=== PATIENT | male | born 1980 | race Caucasian/White ===

== ENCOUNTER 2021-02-10 07:41 | Day surgery (SDC) | payer OTHER ==
[2021-02-10] MEDS ORDERED: HEPARIN SODIUM (PORCINE) 5000 UNITS/ML 1ML VIAL ONE (08:01)
[2021-02-10] MEDS ORDERED: ceFAZolin 1GM/50ML 100 ML IV ONE (08:47)
[2021-02-10] MEDS ORDERED: LIDOCAINE 1% HCL (LOCAL ANESTH.) INJ 20ML MDV ONE ×2 (09:47→09:49)
[2021-02-10] MEDS ORDERED: BUPIVACAINE HCL 50 ML ONE (09:47)
[2021-02-10] MEDS ORDERED: MIDAZOLAM HCL 2MG/2ML 2ml VIAL (1mg/ml) ONE (10:08)
[2021-02-10] MEDS ORDERED: ONDANSETRON HCL 4 MG/2 ML VIAL ONE (10:08)
[2021-02-10] MEDS ORDERED: fentaNYL CITRATE 100 MCG/2 ML VL ONE (10:08)
[2021-02-10] MEDS ORDERED: LIDOCAINE 2% (LOCAL ANESTH.) PF 5ml SDV ONE (10:08)
[2021-02-10] MEDS ORDERED: PROPOFOL 10 MG/ML 20 ML IV ONE (10:08)
[2021-02-10] MEDS ORDERED: NEOSTIGMINE 1 MG/ML INJ (10mg/10ML VIAL) ONE (11:00)
[2021-02-10] MEDS ORDERED: GLYCOPYRROLATE 0.2 MG/ML 1ML VIAL ONE ×2 (11:00→11:26)
[2021-02-10] MEDS ORDERED: NALOXONE HCL 0.4 MG/ML VIAL ONE (11:19)
[2021-02-10] MEDS ORDERED: ONDANSETRON HCL 4 MG/2 ML VIAL IV PRN (11:45)
[2021-02-10] MEDS ORDERED: HYDROmorphone HCL 2 MG/ML VL IV PRN (11:45)
[2021-02-10 12:05] VITALS: BP 151/103
== END 2021-02-10 12:30 | disposition home or self-care (01) ==
LOC: SUR 07:41
DX: K42.0 Umbilical hernia with obstruction, without gangrene (principal); Z98.890 Other specified postprocedural states; Z79.899 Other long term (current) drug therapy
CPT/HCPCS: 49587; J0690; J1170; J1644; J2001; J2250; J2310; J2405; J2704; J3010; J3490

== ENCOUNTER 2021-07-12 12:46 | Inpatient (IN) | payer OTHER ==
[~2021-07-12] VITALS: Ht 175.3 cm; Wt 67.2 kg
[2021-07-12] MEDS ORDERED: SODIUM CHLORIDE 0.9% 500 ML IVB ONE (13:15)
[2021-07-12] MEDS ORDERED: SODIUM CHLORIDE 0.9% 1,000 ML IV ONE (13:15)
[2021-07-12] MEDS ORDERED: cefTRIAXone 1GM/50ML D5W 50 ML IV ONE (13:15)
[2021-07-12] MEDS ORDERED: metroNIDAZOLE 500MG/100ML 100 ML IV ONE (13:15)
[2021-07-12 13:58] LABS: Basophils # (auto) 0.1 10 ^3/uL (0-0.2); Basophils % (auto) 0.6 % (0.0-2.0); Eosinophils # (auto) 0.2 10 ^3/uL (0-0.8); Eosinophils % (auto) 1.9 % (0.0-7.0); Hematocrit 39.5 % (41.0-53.0); Hemoglobin 13.3 g/dL (13.5-17.5); Lymphocytes # (auto) 1.1 10 ^3/uL (0.4-5.4); Lymphocytes % (auto) 11.5 % (10.0-50.0); Mean Corpuscular Hgb Conc. 33.7 g/dL (32.0-36.0); Mean Corpuscular Volume 85.9 fL (80.0-100.0); Monocytes # (auto) 1.1 10 ^3/uL (0-1.3); Monocytes % (auto) 11.6 % (0.0-12.0); Neutrophils # (auto) 7.2 10 ^3/uL (1.6-8.6); Neutrophils % (auto) 74.4 % (37.0-80.0); Nucleated Red Blood Cells % 0.1 %; Red Cell Distribution Width 14.4 % (11.8-14.3); White Blood Cell 9.6 10^3/uL (4.4-10.8)
[2021-07-12 14:25] LABS: Magnesium 2.8 mg/dL (1.6-2.6)
[2021-07-12 14:30] LABS: Albumin 3.1 g/dL (3.4-5.0); BUN/Creatinine Ratio 15.5; Calcium 9.2 mg/dL (8.5-10.1)
[2021-07-12 14:41] LABS: Bilirubin, Total 0.3 mg/dL (0.2-1.0); Total Protein 7.7 g/dL (6.4-8.2)
[2021-07-12 14:42] LABS: INR 0.99 (0.9-1.15)
[2021-07-12] MEDS ORDERED: IOHEXOL 300 MG/ML 100ML BOTTLE IJ ONE (14:58)
[2021-07-12 17:30] LABS: Urine Bacteria NONE SEEN /hpf (None Seen); Urine Blood Negative /uL (Negative); Urine Specific Gravity 1.049 (1.001-1.035); Urine WBC <1 /hpf (0 - 3)
[2021-07-12] MEDS ORDERED: PIPERACILLIN-TAZOB 3.375GM 100 ML IV SCH (18:30)
[2021-07-12] MEDS ORDERED: ONDANSETRON HCL 4 MG/2 ML VIAL IV PRN (18:30)
[2021-07-12] MEDS ORDERED: MORPHINE SULFATE 4 MG/ML SYR/VIAL IV PRN (18:30)
[2021-07-12] MEDS ORDERED: VANCOMYCIN PER PHARMACY 0 MG IV SCH (20:15)
[2021-07-12] MEDS ORDERED: VANCOMYCIN 1GM/250ML 250 ML IV ONE (21:00)
[2021-07-12 22:00] VITALS: BP 120/68
[2021-07-13 05:00] VITALS: BP 104/56
[2021-07-13 06:58] LABS: BUN/Creatinine Ratio 11.4; Calcium 8.8 mg/dL (8.5-10.1); Potassium 3.9 mmol/L (3.5-5.1)
[2021-07-13 08:00] VITALS: BP 110/81
[2021-07-13 09:00] VITALS: BP_SYST 110; BP_SYST 139; BP_DIAS 105; BP_DIAS 81
[2021-07-13] MEDS: VANCOMYCIN 1GM/250ML 250 ML IV SCH ×2 (09:00→21:27)
[2021-07-13] MEDS ORDERED: ENOXAPARIN SOD 40 MG/0.4 ML SYRINGE SC ONE (10:00)
[2021-07-13 12:31] VITALS: BP 120/69
[2021-07-13 16:39] VITALS: BP 106/61
[2021-07-13 22:00] VITALS: BP 118/70
[2021-07-13] MEDS: HYDROcodone-ACET 5/325MG TAB PO PRN (23:56)
[2021-07-14 05:00] VITALS: BP 117/82
[2021-07-14 07:38] LABS: INR 1.05 (0.9-1.15); Partial Thromboplastin Time 28.8 sec (23.6-33.0)
[2021-07-14 08:52] VITALS: BP 118/75
[2021-07-14] MEDS: VANCOMYCIN 1GM/250ML 250 ML IV SCH ×2 (09:00→20:56)
[2021-07-14] MEDS: MORPHINE SULFATE 4 MG/ML SYR/VIAL IV PRN ×3 (09:48→21:50)
[2021-07-14 12:50] VITALS: BP 113/70
[2021-07-14] MEDS ORDERED: MIDAZOLAM HCL 2MG/2ML 2ml VIAL (1mg/ml) ONE ×2 (15:23→15:52)
[2021-07-14] MEDS ORDERED: fentaNYL CITRATE 100 MCG/2 ML VL ONE (15:23)
[2021-07-14] MEDS ORDERED: ROCURONIUM 10MG/ML 10ML VIAL IV ONE (15:32)
[2021-07-14] MEDS ORDERED: SUCCINYLCHOLINE CHLORIDE 20 MG/ML 10ML VIAL IV ONE (15:40)
[2021-07-14] MEDS ORDERED: LIDOCAINE 1% HCL (LOCAL ANESTH.) INJ 20ML MDV ONE (15:48)
[2021-07-14] MEDS ORDERED: BUPIVACAINE HCL 50 ML ONE (15:48)
[2021-07-14] MEDS ORDERED: PROPOFOL 10 MG/ML 20 ML IV ONE (16:22)
[2021-07-14] MEDS ORDERED: METOCLOPRAMIDE HCL 5MG/ml INJ 2ml VIAL ONE (16:22)
[2021-07-14] MEDS ORDERED: ONDANSETRON HCL 4 MG/2 ML VIAL ONE (16:22)
[2021-07-14] MEDS ORDERED: HYDROmorphone HCL 2 MG/ML VL IV PRN ×2 (16:45)
[2021-07-14] MEDS ORDERED: METOCLOPRAMIDE HCL 5MG/ml INJ 2ml VIAL IV PRN (16:45)
[2021-07-14] MEDS ORDERED: ONDANSETRON HCL 4 MG/2 ML VIAL IV PRN (16:45)
[2021-07-14 22:23] VITALS: BP 102/69
[2021-07-15 05:00] VITALS: BP 105/69
[2021-07-15] MEDS: VANCOMYCIN 1GM/250ML 250 ML IV SCH ×2 (11:00→21:11)
[2021-07-15] MEDS: HYDROcodone-ACET 5/325MG TAB PO PRN (11:50)
[2021-07-15 12:42] VITALS: BP 120/74
[2021-07-15 17:04] VITALS: BP 111/74
[2021-07-15] MEDS: CELECOXIB 100 MG CAP PO SCH (21:11)
[2021-07-15 21:44] VITALS: BP 109/73
[2021-07-16 04:59] VITALS: BP 107/68
[2021-07-16] MEDS: VANCOMYCIN 1GM/250ML 250 ML IV SCH ×2 (08:48→21:34)
[2021-07-16 09:00] VITALS: BP 117/62
[2021-07-16] MEDS: PANTOPRAZOLE 40 MG TAB PO SCH (09:00)
[2021-07-16] MEDS: CELECOXIB 100 MG CAP PO SCH ×2 (09:00→21:34)
[2021-07-16] MEDS: ENOXAPARIN SOD 40 MG/0.4 ML SYRINGE SC SCH (09:00)
[2021-07-16] MEDS: HYDROcodone-ACET 5/325MG TAB PO PRN (09:02)
[2021-07-16 13:00] VITALS: BP_SYST 122; BP_SYST 92; BP_DIAS 66; BP_DIAS 72
[2021-07-16 17:00] VITALS: BP_SYST 112; BP_SYST 31; BP_DIAS 81; BP_DIAS 92
[2021-07-16 22:00] VITALS: BP 112/72
[2021-07-17 05:17] VITALS: BP 123/74
[2021-07-17 08:00] VITALS: BP 115/73
[2021-07-17] MEDS: VANCOMYCIN 1GM/250ML 250 ML IV SCH ×2 (11:21→20:45)
[2021-07-17] MEDS: CELECOXIB 100 MG CAP PO SCH ×2 (11:22→20:45)
[2021-07-17] MEDS: ENOXAPARIN SOD 40 MG/0.4 ML SYRINGE SC SCH (11:22)
[2021-07-17] MEDS: PANTOPRAZOLE 40 MG TAB PO SCH (11:22)
[2021-07-17 12:00] VITALS: BP 118/68
[2021-07-17 16:00] VITALS: BP 113/68
[2021-07-17 22:00] VITALS: BP 119/71
[2021-07-18 05:00] VITALS: BP 113/67
[2021-07-18 09:00] VITALS: BP 115/65
[2021-07-18] MEDS: VANCOMYCIN 1GM/250ML 250 ML IV SCH ×2 (11:06→21:00)
[2021-07-18] MEDS: PANTOPRAZOLE 40 MG TAB PO SCH (11:06)
[2021-07-18] MEDS: CELECOXIB 100 MG CAP PO SCH ×2 (11:06→21:54)
[2021-07-18] MEDS: ENOXAPARIN SOD 40 MG/0.4 ML SYRINGE SC SCH (11:06)
[2021-07-18 13:00] VITALS: BP 115/64
[2021-07-18 17:00] VITALS: BP 115/71
[2021-07-18 22:00] VITALS: BP 101/56
[2021-07-19 05:00] VITALS: BP 101/69
[2021-07-19 05:57] LABS: Potassium 3.8 mmol/L (3.5-5.1)
[2021-07-19 06:02] LABS: Calcium 8.3 mg/dL (8.5-10.1)
[2021-07-19 09:00] VITALS: BP 106/62
[2021-07-19] MEDS: VANCOMYCIN 1GM/250ML 250 ML IV SCH ×2 (09:00→21:29)
[2021-07-19] MEDS: CELECOXIB 100 MG CAP PO SCH ×2 (10:00→21:29)
[2021-07-19] MEDS: ENOXAPARIN SOD 40 MG/0.4 ML SYRINGE SC SCH (10:00)
[2021-07-19] MEDS: PANTOPRAZOLE 40 MG TAB PO SCH (10:00)
[2021-07-19] MEDS: HYDROcodone-ACET 5/325MG TAB PO PRN (10:38)
[2021-07-19 13:00] VITALS: BP 113/70
[2021-07-19 17:00] VITALS: BP 111/74
[2021-07-19 22:00] VITALS: BP 102/55
[2021-07-20 05:00] VITALS: BP 123/76
[2021-07-20 07:27] LABS: Calcium 8.3 mg/dL (8.5-10.1); Potassium 4.1 mmol/L (3.5-5.1)
[2021-07-20 07:29] LABS: BUN/Creatinine Ratio 21.6
[2021-07-20 08:41] VITALS: BP 122/68
[2021-07-20] MEDS: VANCOMYCIN 1GM/250ML 250 ML IV SCH ×2 (10:34→21:27)
[2021-07-20] MEDS: CELECOXIB 100 MG CAP PO SCH ×2 (10:34→23:23)
[2021-07-20] MEDS: PANTOPRAZOLE 40 MG TAB PO SCH (10:34)
[2021-07-20] MEDS: ENOXAPARIN SOD 40 MG/0.4 ML SYRINGE SC SCH (10:35)
[2021-07-20 12:36] VITALS: BP 106/69
[2021-07-20 16:28] VITALS: BP_SYST 125; BP_DIAS 7; BP_DIAS 73
[2021-07-20] MEDS: HYDROcodone-ACET 5/325MG TAB PO PRN (16:28)
[2021-07-20 16:40] VITALS: BP 114/66
[2021-07-20 21:34] VITALS: BP 114/75
[2021-07-21 05:00] VITALS: BP 117/72
[2021-07-21] MEDS: HYDROcodone-ACET 5/325MG TAB PO PRN (06:52)
[2021-07-21 09:00] VITALS: BP 118/69
[2021-07-21] MEDS: VANCOMYCIN 1GM/250ML 250 ML IV SCH ×2 (09:00→22:03)
[2021-07-21] MEDS: ENOXAPARIN SOD 40 MG/0.4 ML SYRINGE SC SCH (10:00)
[2021-07-21] MEDS: PANTOPRAZOLE 40 MG TAB PO SCH (10:00)
[2021-07-21] MEDS: CELECOXIB 100 MG CAP PO SCH ×2 (10:00→23:21)
[2021-07-21 13:00] VITALS: BP 122/73
[2021-07-21 17:00] VITALS: BP 112/60
[2021-07-21 22:26] VITALS: BP 113/70
[2021-07-21] MEDS: HYDROCORTISONE ACET 25 MG RECTAL SUPP PR PRN (23:21)
[2021-07-22 03:00] VITALS: BP 115/74
[2021-07-22] MEDS: HYDROCORTISONE ACET 25 MG RECTAL SUPP PR PRN ×2 (07:03→21:11)
[2021-07-22 09:00] VITALS: BP 139/58
[2021-07-22] MEDS: VANCOMYCIN 1GM/250ML 250 ML IV SCH ×2 (09:00→21:10)
[2021-07-22] MEDS: ENOXAPARIN SOD 40 MG/0.4 ML SYRINGE SC SCH (10:00)
[2021-07-22] MEDS: CELECOXIB 100 MG CAP PO SCH ×2 (10:00→21:11)
[2021-07-22] MEDS: PANTOPRAZOLE 40 MG TAB PO SCH (10:00)
[2021-07-22 13:00] VITALS: BP 114/70
[2021-07-22 17:00] VITALS: BP 116/61
[2021-07-22 22:00] VITALS: BP 102/55
[2021-07-23 05:00] VITALS: BP 114/60
[2021-07-23] MEDS: HYDROcodone-ACET 5/325MG TAB PO PRN (05:27)
[2021-07-23 08:45] VITALS: BP 114/69
[2021-07-23] MEDS: PANTOPRAZOLE 40 MG TAB PO SCH (10:00)
[2021-07-23] MEDS: ENOXAPARIN SOD 40 MG/0.4 ML SYRINGE SC SCH (10:00)
[2021-07-23] MEDS: CELECOXIB 100 MG CAP PO SCH ×2 (10:00→22:00)
[2021-07-23] MEDS: VANCOMYCIN 1GM/250ML 250 ML IV SCH (12:00)
[2021-07-23 13:00] VITALS: BP 104/61
[2021-07-23 17:00] VITALS: BP 97/70
[2021-07-23 20:00] VITALS: BP 98/62
[2021-07-23 22:00] VITALS: BP 98/62
[2021-07-24] MEDS: VANCOMYCIN 1GM/250ML 250 ML IV SCH (04:08)
[2021-07-24 05:00] VITALS: BP 123/77
[2021-07-24 05:45] LABS: Basophils # (auto) 0 10 ^3/uL (0-0.2); Basophils % (auto) 0.7 % (0.0-2.0); Eosinophils # (auto) 0.2 10 ^3/uL (0-0.8); Eosinophils % (auto) 2.9 % (0.0-7.0); Hematocrit 34.9 % (41.0-53.0); Hemoglobin 12.2 g/dL (13.5-17.5); Lymphocytes # (auto) 1.5 10 ^3/uL (0.4-5.4); Lymphocytes % (auto) 26.8 % (10.0-50.0); Mean Corpuscular Hemoglobin 29.6 pg (28.0-32.0); Mean Corpuscular Volume 84.7 fL (80.0-100.0); Monocytes # (auto) 0.6 10 ^3/uL (0-1.3); Monocytes % (auto) 11.8 % (0.0-12.0); Neutrophils # (auto) 3.1 10 ^3/uL (1.6-8.6); Neutrophils % (auto) 57.8 % (37.0-80.0); Nucleated Red Blood Cells % 0.2 %; Red Blood Cells 4.12 10^6/uL (4.5-5.90); White Blood Cell 5.5 10^3/uL (4.4-10.8)
[2021-07-24 08:00] VITALS: BP 98/62
[2021-07-24 09:41] VITALS: BP 110/67
[2021-07-24 13:00] VITALS: BP 99/60
[2021-07-24] MEDS: PANTOPRAZOLE 40 MG TAB PO SCH (16:08)
[2021-07-24] MEDS: CELECOXIB 100 MG CAP PO SCH (16:08)
[2021-07-24] MEDS: ENOXAPARIN SOD 40 MG/0.4 ML SYRINGE SC SCH (16:08)
[2021-07-24] MEDS: HYDROCORTISONE ACET 25 MG RECTAL SUPP PR PRN (16:09)
[2021-07-24 16:57] VITALS: BP 117/72
[2021-07-24] MEDS ORDERED: VANCOMYCIN 1GM/250ML 250 ML IV SCH (21:00)
[2021-07-24 21:23] VITALS: BP 107/60
== END 2021-07-24 22:59 | DRG 349 ==
LOC: ER 12:46 → EDBD 12:46 → EEVIPCON 12:46 → OVERFLOW 18:20 → WEST WING 21:05
PROVIDERS: ADMIT Internal Medicine; ATTEND Internal Medicine
PROC: 0D9Q00Z Drainage of Anus with Drainage Device, Open Approach (ICD-10-PCS; principal; 2021-07-14 15:52)
DX: K61.2 Anorectal abscess (principal); K64.8 Other hemorrhoids; K59.01 Slow transit constipation; A49.02 Methicillin resistant Staphylococcus aureus infection, unspecified site; Z83.3 Family history of diabetes mellitus; Z20.822 Contact with and (suspected) exposure to COVID-19
CPT/HCPCS: 36415; 71045; 73560; 73562; 74177; 80048; 80053; 80202; 81001; 82565; 83690; 83735; 85025; 85610; 85730; 86850; 86900; 86901; 87077; 87186; 87205; 96365; G0378; J0330; J0696; J2001; J2250; J2405; J2543; J2704; J3490